=== PATIENT | female | born 1990 | race Caucasian/White ===

== ENCOUNTER 2019-01-17 11:43 | Emergency (ER) | payer SELFPAY ==
[~2019-01-17] VITALS: Ht 165.1 cm; Wt 64.7 kg
[2019-01-17 11:49] VITALS: BP 131/82
--- NOTE | 2019-01-17 11:56 | NUR ---
PT TO ROOM AT THIS TIME.
--- NOTE | 2019-01-17 12:01 | NUR ---
28 Y/O FEMALE PRESENTS TO ED WITH C/O SEIZURES. "I WAS AT WORK LATE AT NIGHT. I'VE HAD SEIZURES BEFORE WHEN I GET REALLY TIRED. CHERELLE BEEN REALLY TIRED LATELY. I WAS GETTING OFF WORK ABOUT 10. I REMEMBER TAKING THE TRASH OUT AND GOING TO MY CAR. I REMEMBER COMING BACK INTO WORK. 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 I WAS AT [facility] TODAY. THEN THEY TRANSFERRED ME HERE. " FAMILY BEDSIDE. NO ACUTE DISTRESS NOTED. PT PLACED ON CONT PULSE OX,NIBP, TOP LIFTER. EDPA BEDSIDE.
--- NOTE | 2019-01-17 12:07 | NUR ---
PT ARRIVES WITH BRUISING N CHIN AREA, ARMS. PT ALSO HAS SUTURES ON CHIN
--- NOTE | 2019-01-17 12:08 | NUR ---
PT STATES "I HAVE POISON [place] ON MY FACE AND BACK."
[2019-01-17] MEDS ORDERED: ALBUTEROL/IPRATROPIUM 2.5MG/0.5MG, 3 ML NPPB ONE (12:30)
[2019-01-17] MEDS ORDERED: ALBUTEROL SULFATE 2.5 MG/3 ML NPPB ONE (12:45)
[2019-01-17] MEDS ORDERED: ALBUTEROL SULFATE 2.5 MG/3 ML ONE (12:49)
[2019-01-17] MEDS ORDERED: PLEASE ENTER ALLERGIES MC SCH (13:00)
--- NOTE | 2019-01-17 13:49 | NUR ---
LATE ENTRY [place] 1300 [place] NO ACUTE DISTRESS NOTED. FAMILY BEDSIDE.
--- NOTE | 2019-01-17 13:50 | NUR ---
Patient/Caregiver given discharge instructions and they have confirmed that they understand the instructions. Patient ambulatory with steady gait. PT FAMILY PREFERS TO USE WHEELCHAIR. PT LEFT WITH ALL PERSONAL BELONGINGS.
== END 2019-01-17 13:53 | disposition home or self-care (01) ==
LOC: ED 12:21
DX: S02.611A Fracture of condylar process of right mandible, initial encounter for closed fracture (principal); S01.81XA Laceration without foreign body of other part of head, initial encounter; S50.02XA Contusion of left elbow, initial encounter; S50.01XA Contusion of right elbow, initial encounter; F17.210 Nicotine dependence, cigarettes, uncomplicated; F10.10 Alcohol abuse, uncomplicated; X58.XXXA Exposure to other specified factors, initial encounter; Y93.89 Activity, other specified; Y92.89 Other specified places as the place of occurrence of the external cause; Y99.8 Other external cause status
CPT/HCPCS: 94640; 99283; J7613